=== PATIENT | male | born 1955 | race Caucasian/White ===

== ENCOUNTER 2020-07-21 16:00 | Emergency (ER) | payer SELFPAY ==
[~2020-07-21] VITALS: Ht 175.3 cm; Wt 141.1 kg
[2020-07-21] MEDS ORDERED: ROPINIROLE HCL1 MG PO (16:34)
[2020-07-21] MEDS ORDERED: AMLODIPINE BESY10 MG PO (16:34)
[2020-07-21] MEDS ORDERED: VENLAFAXINE HC150 MG (16:34)
[2020-07-21] MEDS ORDERED: SINEMET 25-1001 EACH PO (16:34)
[2020-07-21] MEDS ORDERED: CYCLOBENZAPRINE10 MG PO (16:44)
[2020-07-21] MEDS ORDERED: KETOROLAC TROMETHAMINE 60 MG/2 ML VIAL IM ONE (16:45)
[2020-07-21] MEDS ORDERED: ULTRAM50 MG PO (16:45)
[2020-07-21] MEDS ORDERED: KETOROLAC TROMETHAMINE 60 MG/2 ML VIAL ONE (16:56)
[2020-07-21 17:09] VITALS: BP 141/83
--- NOTE | 2020-07-21 17:22 | Emergency Department Note ---
History of Present Illnes History of Present Illness Chief Complaint: Extremity Trauma/Pain History of Present Illness This is a 64 year old male who presents with right sided low back pain radiating to hip and down right posterior/lateral leg since December. Patient states he bent over and suddenly developed pain. Has not had MRI. States pain was improving with NSAIDs and stretching exercises until one month ago when "moved wrong" and pain got worse again. No numbness, tingling, weakness. Worse with weight bearing and movement. No abd pain. No loss of bowel or bladder function. Ambulatory with [facility]. No fever, cough, sore throat, URI sx, loss of taste/smell Historian: Patient Arrival Mode: Car Additional Treatment OFFICER LIEUTENANT: biofreeze/meds Cutter Tender Required: No Onset (how long ago): month(s) Radiation: Reports extremity (Intermittant: Rt. post/lat LE to just above rt knee) Severity: unable to specify Onset quality: unable to specify Duration (how long): month(s) Progression: waxing and waning Chronicity: chronic Relieving factors: other (hot tub) Exacerbating factors: movement Associated symptoms: Denies confusion, Denies chest pain, Denies cough, Denies diaphoresis, Denies fever/chills, Denies headaches, Denies loss of appetite, Denies nausea/vomiting Past Medical/Family History Physician Review I have reviewed the patient's past medical and family history. Any updates have been documented here. Past Medical History Recent Fever: No Clinical Suspicion of Infectio: No New/Unexplained Change in Ment: No Past Medical History: Hypertension, Depression, Chronic Back Pain Other Medical History: Restless leg syndrome Past Surgical History: T&A Other Surgery: TMJ surgery Social History Smoking Cessation: Never Smoker Counseling Performed: No Alcohol Use: Occasional Any Illegal Drug Use: No Physically hurt or threatened: No Other Any Pre-Existing Lines (PICC,: No Review of Systems Review of Systems Constitutional: Denies chills, Denies diaphoresis EENTM: Denies throat pain, Denies throat swelling Cardiovascular: Denies chest pain Respiratory: Denies change in phlegm color Gastrointestinal: Denies abdominal pain, Denies constipation, Denies diarrhea, Denies nausea, Denies vomiting Genitourinary: Denies dysuria, Denies frequency, Denies hematuria Musculoskeletal: Reports back pain, Reports joint pain, Reports muscle pain, Reports muscle stiffness; Denies joint swelling Integumentary: Denies rash Neurological: Denies headache, Denies numbness Hematological/Lymphatic: Denies easy bleeding Physical Exam Related Data Allergies: Coded Allergies: No Known Allergies (Unverified , 07/21/20) Triage Vital Signs Vital Signs Date Time Temp Pulse Resp B/P (MAP) Pulse Ox O2 Delivery O2 Flow Rate FiO2 07/21/20 16:03 97.3 85 18 151/89 99 Room Air Physical Exam CONSTITUTIONAL Constitutional: Present well-developed, Present well-nourished, Present obese HENT HENT: Present normocephalic, Present atraumatic, Present oropharynx clear/moist, Present nose normal HENT L/R: Present left ext ear normal, Present right ext ear normal EYES Eyes: Reports PERRL, Reports conjunctivae normal NECK Neck: Present ROM normal PULMONARY Pulmonary: Present effort normal, Present breath sounds normal CARDIOVASCULAR Cardiovascular: Present regular rhythm, Present heart sounds normal, Present capillary refill normal, Present normal rate GASTROINTESTINAL Abdominal: Present nontender, Present other (No pulsitile mass); Absent mass GENITOURINARY SKIN Skin: Present rash, Present other (No fay osuna's) MUSCULOSKELETAL Musculoskeletal: Present ROM normal, Present tenderness (tender over right SI joint), Present other (negative straight leg raise); Absent edema, Absent deformity, Absent swelling NEUROLOGICAL Neurological: Present alert, Present oriented x 3, Present DTRs normal, Present no gross motor or sensory deficits, Present abnormal gait (slight limp favoring Rt LE); Absent sensory deficit, Absent abnormal DTRs, Absent weakness PSYCHOLOGICAL Psychological: Present mood/affect normal Assessment & Plan Medical Decision Making MDM Differential diagnosis includes, but not limited to AAA, HNP, strain, sprain, sciatica. Reassessment Reassessment time: 16:50 Reassessment Pain improved after Toradol Assessment & Plan Final Impression: (1) Sciatica of right side Last Vital Signs Date Time Temp Pulse Resp B/P (MAP) Pulse Ox O2 Delivery O2 Flow Rate FiO2 07/21/20 16:03 97.3 85 18 151/89 99 Room Air Home Meds Active Scripts Tramadol Hcl (ULTRAM) 50 Mg Tablet, 50 MG PO Q6HR PRN for SEVERE PAIN (7-10) for 14 Days, TAB Prov:MANI HARO MD 07/21/20 Cyclobenzaprine Hcl (CYCLOBENZAPRINE HCL) 10 Mg Tablet, 10 MG PO TID for spasm for 28 Days, TAB Prov:MANI HARO MD 07/21/20 Reported Medications Ropinirole Hcl (ROPINIROLE HCL) 1 Mg Tablet, 2 MG PO TID, #30 TAB 07/21/20 Venlafaxine Hcl (VENLAFAXINE HCL ER) 150 Mg Cap.er.24h, DAILY 07/21/20 Amlodipine Besylate (AMLODIPINE BESYLATE) 10 Mg Tablet, 10 MG PO HS, #30 TAB 07/21/20 Carbidopa/Levodopa (SINEMET 25-100 MG TABLET) 1 Each Tablet, 1 TAB PO TID, #90 TAB 07/21/20 Medications in the ED Ketorolac Tromethamine 60 mg ONCE ONCE IM ; Start 07/21/20 at 16:45; Stop 07/21/20 at 16:46; Status DC MANI HARO MD Jul 21, 2020 16:48
== END 2020-07-21 17:07 | disposition home or self-care (01) ==
LOC: FSED 16:40
DX: M54.41 Lumbago with sciatica, right side (principal); X50.1XXA Overexertion from prolonged static or awkward postures, initial encounter; I10 Essential (primary) hypertension; F32.9 Major depressive disorder, single episode, unspecified; G89.29 Other chronic pain
CPT/HCPCS: 96372; 99282; J1885